=== PATIENT | male | born 1955 | race American Indian/Alaskan Native ===

== ENCOUNTER 2017-06-13 19:09 | Emergency (ER) | payer OTHER ==
--- NOTE | 2017-06-13 20:40 | XRay Report ---
FINAL REPORT PROCEDURE: XR KNEE 1-2V RT TECHNIQUE: Right knee, two views HISTORY: knee pain/swelling COMPARISON: No prior studies are available for comparison. FINDINGS: There are tricompartmental osteoarthritic changes, with joint space narrowing and osteophyte formation. Joint effusion is present. No acute fracture or dislocation is seen. There is calcification of the medial meniscus. IMPRESSION: Osteoarthritis and joint effusion
[2017-06-14] MEDS ORDERED: TORADOL IM ONE (06:23)
[2017-06-14] MEDS ORDERED: NORCO 5/325 PO ONE (06:23)
--- NOTE | 2017-06-14 06:36 | Emergency Department Report ---
HPI - General Chief Complaint: Pain General Time Seen by Provider: 06/14/17 06:06 - HPI HPI: 62-year-old male presents to the emergency department with complaint of right knee pain and swelling that has been going on since Sunday evening, 2 days ago. He denies any trauma. He does say that he has been working a lot and is always on his feet. Due to the pain and swelling, he has trouble bending his knee and therefore ambulating. He denies any skin color change, rash. He has a past medical history of coronary artery disease with previous MN and hypertension. He does have a previous history of some type of orthopedic right knee surgery that sounds like it was his meniscus but this was a long time ago and he does not have a current orthopedist, nor a primary care physician. No recent travel, immobility or sick contacts at home. He took some ibuprofen and naproxen, at different times, for his symptoms without much relief. ED Past Medical Hx - Past Medical History Previous Medical History?: Yes Hx Heart Attack/AMI: Yes (no meds) - Surgical History Past Surgical History?: No - Medications Home Medications: Home Medications Medication Instructions Recorded Confirmed Last Taken Type HYDROcodone/ACETAMINOPHEN [[place] 1 each PO Q6H PRN #12 tablet 06/14/17 Unknown Rx 5-325 Tablet] ED Review of Systems ROS: Stated complaint: KNEE PAIN Other details as noted in HPI Comment: All other systems reviewed and negative Constitutional: denies: chills, fever Eyes: denies: eye pain, eye discharge, vision change ENT: denies: ear pain, throat pain Respiratory: denies: cough, shortness of breath, wheezing Cardiovascular: edema (right knee swelling). denies: chest pain, palpitations Gastrointestinal: denies: abdominal pain, nausea, diarrhea Genitourinary: denies: urgency, dysuria Musculoskeletal: joint swelling, arthralgia. denies: back pain Skin: denies: rash, lesions Neurological: denies: headache, weakness, paresthesias Physical Exam - Physical Exam Vital Signs: Vital Signs 06/13/17 19:55 Temperature 98.1 F Pulse Rate 93 H Respiratory 20 Rate Blood Pressure 163/133 O2 Sat by Pulse 99 Oximetry Physical Exam: GENERAL: The patient is well-developed well-nourished. HENT: Normocephalic. Atraumatic. Patient has moist mucous membranes. EYES: Extraocular motions are intact. Pupils equal reactive to light bilaterally. NECK: Supple. Trachea is midline. CHEST/LUNGS: Clear to auscultation. There is no respiratory distress noted. HEART/CARDIOVASCULAR: Regular. There is no tachycardia. There is no murmur. ABDOMEN: Abdomen is soft, nontender. Patient has normal bowel sounds. There is no abdominal distention. SKIN: Skin is warm and dry. NEURO: The patient is awake, alert, and oriented. The patient is cooperative. The patient has no focal neurologic deficits. The patient has normal speech. MUSCULOSKELETAL: There is tenderness palpation to the circumferential right knee , but worst in the anterior portion. There is some swelling to the anterior right knee consistent with a joint effusion. No surrounding erythema or warmth. Negative anterior and posterior drawer tests and no laxity with valgus or varus stress. Decreased range of motion at the right knee secondary to pain. ED Course Vital Signs 06/13/17 19:55 Temperature 98.1 F Pulse Rate 93 H Respiratory 20 Rate Blood Pressure 163/133 O2 Sat by Pulse 99 Oximetry ED Medical Decision Making - EKG Data -: EKG Interpreted by Me EKG shows normal: sinus rhythm, axis, intervals, QRS complexes, ST-T waves ( nonspecific ST-T waves) Rate: normal - EKG Data When compared to previous EKG there are: previous EKG unavailable Interpretation: nonspecific ST-T wave emily - Radiology Data Radiology results: report reviewed, image reviewed interpreted by me: X-ray of the right knee does not show any fracture, dislocation or any acute process. There is some signs of arthritis and joint effusion. Right lower extremity venous Doppler negative for DVT. - Medical Decision Making Patient presents with atraumatic right knee pain and swelling for the past 2 days. Negative for DVT. X-ray shows arthritis and joint effusion. Vital signs stable. He got some pain relief with Toradol and a [place]. He will go home on crutches and a knee immobilizer and has been given multiple orthopedic referrals. - Differential Diagnosis fracture, dislocation, bursitis, tendinitis Critical Care Time: No Critical care attestation.: If time is entered above; I have spent that time in minutes in the direct care of this critically ill patient, excluding procedure time. ED Disposition Clinical Impression: Knee effusion, right Right knee pain Qualifiers: Chronicity: acute Qualified Code(s): M25.561 - Pain in right knee Hypertension Qualifiers: Hypertension type: essential hypertension Qualified Code(s): I10 - Essential ( primary) hypertension Disposition: TO HOME OR SELFCARE Is pt being admited?: No Condition: Stable Instructions: Knee Effusion (ED), Hypertension (ED), Arthralgia (ED) Additional Instructions: Please follow up with orthopedist regarding a right knee pain. He can use ice, rest, elevation and compression. Return to the emergency Department with any worsening of your symptoms or any acute distress. You have been prescribed a medication that is sedating and therefore should not be taken prior to driving, working, and responsible for children and in no way should be mixed with alcohol of any quantity. Prescriptions: HYDROcodone/ACETAMINOPHEN [[place] 5-325 Tablet] 1 each PO Q6H PRN #12 tablet PRN Reason: Pain Referrals: DAYDAY OG MD [Staff Physician] - 3-5 Days [facility] [Provider Group] - 3-5 Days Forms: Accompanied Note Time of Disposition: 09:00
[2017-06-14 09:02] VITALS: BP 135/93
--- NOTE | 2017-06-15 14:23 | Vascular Lab Report ---
Right Lower Extremity Venous Duplex Study: Reason for Exam: Pain and swelling of the right lower extremity. Comments on the Right: All veins visualized are freely compressible without evidence of internal echogenicity. Flow is spontaneous and phasic throughout. No evidence of acute or chronic thrombus is seen in any of the vessels visualized. There are soft tissue change in the right knee area most compatible with an effusion or Fernandez's cyst. Comments on the Left: A limited duplex study was done of the proximal veins of the left lower extremity. All veins visualized are freely compressible without evidence of internal echogenicity. Flow is spontaneous and phasic throughout. No evidence of acute or chronic thrombus is seen in any of the vessels visualized. Impression: No evidence of acute or chronic deep venous thrombosis in the right lower extremity.
== END 2017-06-14 09:36 | disposition home or self-care (01) ==
LOC: ED 19:09
DX: M25.461 Effusion, right knee (principal); I10 Essential (primary) hypertension; I25.2 Old myocardial infarction
CPT/HCPCS: 29505; 73560; 93005; 93010; 93971; 96372; 99284; J1885